=== PATIENT | male | born 1945 ===

== ENCOUNTER 2022-04-29 14:46 | Emergency (ER) | payer MEDICARE, OTHER ==
[~2022-04-29 14:46] MED LIST: Sodium Chloride 0.9% 1,000 ML IV ONE; Sodium Chloride 0.9% 10 ML Syringe FLUSH PRN
[2022-04-29] MEDS ORDERED: Iopamidol 612 MG/ML 100 ML Bottle IVPUSH ONE (14:56)
[2022-04-29] MEDS ORDERED: Sodium Chloride 0.9% 1,000 ML IV ONE ×2 (15:10→15:11)
[2022-04-29] MEDS ORDERED: Ondansetron 4 MG/2 ML SDV IVPUSH ONE (15:14)
[2022-04-29] MEDS ORDERED: Ondansetron 4 MG/2 ML SDV ONE (15:14)
[2022-04-29 15:41] LABS: CHLORIDE,CL 103 mmol/L (98-107); SODIUM,NA 136 mmol/L (136-145)
[2022-04-29 15:44] LABS: ESTIMATED GFR 38 mL/min (>=60)
[2022-04-29] MEDS ORDERED: Norepinephrine 4 MG in Dextrose 5% in Water 246 ML IV SCH ×2 (16:30)
== END 2022-04-29 17:51 ==
LOC: DL.ED 14:46
DX: I95.89 Other hypotension (principal); E87.2 Acidosis; Z88.8 Allergy status to other drugs, medicaments and biological substances; Z20.822 Contact with and (suspected) exposure to COVID-19
CPT/HCPCS: 36415; 70450; 71260; 72125; 74177; 80053; 80307; 82272; 83605; 84484; 85025; 85610; 86850; 86900; 86901; 93005; 96365; 96375; 99285; J7060; Q9967; U0002